=== PATIENT | male | born 1995 ===

== ENCOUNTER 2018-01-19 11:29 | Emergency (ER) | payer SELFPAY ==
[2018-01-19] MEDS ORDERED: Acetaminophen TAB* 325 MG PO ONE (12:57)
--- NOTE | 2018-01-19 12:58 | UC ---
General HPI - HPI Summary HPI Summary: Pt presents with c/o generalized malaise, chills, ST, and has concern for possible herpes exposure. Pt reports that he used the "chapstick" of a friend who has known, oral herpes but was not having an active outbreak at time of use . Pt states that he has not slept well over thelast two nights, has not eaten breakfast this moring and now fels chilled and mildly dizzy. - History of Current Complaint Chief Complaint: UCRespiratory Stated Complaint: PERSONAL Time Seen by Provider: 01/19/18 11:52 Hx Obtained From: Patient Onset/Duration: Gradual Onset, Lasting Days, Still Present Timing: Constant Onset Severity: Mild Current Severity: Mild Pain Intensity: 3 Associated Signs & Symptoms: Positive: Dizziness - Allergy/Home Medications Allergies/Adverse Reactions: Allergies Allergy/AdvReac Type Severity Reaction Status Date / Time No Known Allergies Allergy Verified 01/19/18 11:49 Home Medications: Home Medications NK [No Home Medications Reported] 01/19/18 [History Confirmed 01/19/18] PMH/Surg Hx/FS Hx/Imm Hx Previously Healthy: Yes - Surgical History Surgical History: None - Family History Known Family History: Positive: Cardiac Disease - Social History Occupation: Employed Full-time Lives: With Family Alcohol Use: Weekly Substance Use Type: None Smoking Status (MU): Never Smoked Tobacco Have You Smoked in the Last Year: No Review of Systems All Other Systems Reviewed And Are Negative: Yes Constitutional: Positive: Chills, Fatigue Skin: Positive: Negative Eyes: Positive: Negative ENT: Positive: Sore Throat Respiratory: Positive: Negative Cardiovascular: Positive: Negative Gastrointestinal: Positive: Negative Genitourinary: Positive: Negative Motor: Positive: Negative Neurovascular: Positive: Negative Musculoskeletal: Positive: Myalgia Neurological: Positive: Negative Psychological: Positive: Negative Is Patient Immunocompromised?: No Physical Exam Triage Information Reviewed: Yes Appearance: Ill-Appearing Vital Signs: Initial Vital Signs Temp 100.4 F 01/19/18 11:45 Pulse 128 01/19/18 11:45 Resp 18 01/19/18 11:45 BP 124/86 01/19/18 11:45 Pulse Ox 99 01/19/18 11:45 Vital Signs Reviewed: Yes Eye Exam: Normal ENT: Positive: Nasal congestion Dental Exam: Normal Neck exam: Normal Respiratory Exam: Normal Cardiovascular Exam: Normal Musculoskeletal Exam: Normal Neurological Exam: Normal Psychological Exam: Normal Skin Exam: Normal Course/Dx - Course Course Of Treatment: uc rapid flu: negative. uc rapid strep: negative - Differential Dx - Multi-Symptom Differential Diagnoses: Other - Diagnoses Provider Diagnosis: Viral syndrome Discharge - Sign-Out/Discharge Documenting (check all that apply): Patient Departure All imaging exams completed and their final reports reviewed: No Studies - Discharge Plan Condition: Stable Disposition: HOME Patient Education Materials: Viral Syndrome (ED) Referrals: Care [facility] [Outside] - If Needed No Primary Care Phys,NOPCP [Primary Care Provider] - - Billing Disposition and Condition Condition: STABLE Disposition: Home
--- NOTE | 2018-01-21 16:42 | UC ---
- Progress Note Progress Note: Throat culture from January 19, 2018 comes back positive for BRANHAMELLA CATARRALIS I have sent a prescription of Augmentin to the patient's pharmacy. Nursing to call patient and inform him of the positive culture and the antibiotic treatment. Course/Dx - Diagnoses Provider Diagnoses: Viral syndrome Discharge - Sign-Out/Discharge Documenting (check all that apply): Patient Departure All imaging exams completed and their final reports reviewed: No Studies - Discharge Plan Condition: Stable Disposition: HOME Prescriptions: Amoxicillin/Clavulanate TAB* [Augmentin TAB 875*] 875 mg PO BID #20 tab Patient Education Materials: Viral Syndrome (ED) Referrals: [facility] [Outside] - If Needed No Primary Care Phys,NOPCP [Primary Care Provider] - - Billing Disposition and Condition Condition: STABLE Disposition: Home
== END 2018-01-19 13:07 | disposition home or self-care (01) ==
LOC: UCEAST 11:29
DX: B34.9 Viral infection, unspecified (principal)
CPT/HCPCS: 36415; 86703; 87070; 87077; 87651; 99202; A9270-GY; G0463